=== PATIENT | male | born 1955 | race Caucasian/White ===

== ENCOUNTER 2017-05-13 17:25 | Emergency (ER) | payer OTHER ==
[~2017-05-13] VITALS: Ht 180.3 cm; Wt 81.5 kg
[~2017-05-13 17:25] MED LIST: ATOR20TA38 PO; METFORMIN PO
[2017-05-13 17:28] VITALS: Ht 180.3 cm; Wt 81.5 kg
[2017-05-13] MEDS ORDERED: ONDANSETRON 4 MG INJ IV STA (18:08)
[2017-05-13] MEDS ORDERED: morphine 4 MG/ML VIAL IV STA (18:08)
[2017-05-13] MEDS ORDERED: SOD CHLORIDE 0.9% 1,000 ML IV STA (18:08)
--- NOTE | 2017-05-13 19:05 | RADRPT ---
PROCEDURE: CT Abdomen and Pelvis without contrast. CLINICAL INDICATION: Abdominal pain TECHNIQUE: CT of the abdomen and pelvis was performed on a multi-detector scanner without IV contr ast. Coronal and sagittal images were reformatted from the axial data set. One or more of the foll owing dose reduction techniques were used: automated exposure control, adjustment of the mA and/or k V according to patient size, use of iterative reconstruction technique. CTDI = 10.16 mGy. DLP = 586 .56 mGy-cm. COMPARISON: None. FINDINGS: CT abdomen: The lung bases are clear. The heart size is normal, without pericardial effusion. Liver, gallbladd er, biliary tree, pancreas, spleen, adrenal glands and kidneys are unremarkable. No urolithiasis or obstructive uropathy is identified. The stomach is grossly unremarkable. The aorta is of normal caliber. Aortic vascular calcifications are present. There is no retroperit sanchez lymphadenopathy. The umer hepatis region is clear. CT pelvis: There is mild diffuse colonic wall thickening and pericolonic edema, compatible with mild diffuse co litis. No bowel obstruction, free intraperitoneal air or abscess is identified. The appendix is we ll visualized and normal. There is no diverticulosis or diverticulitis. Bowel containing right ing uinal hernia is noted. Urinary bladder is grossly unremarkable. No pelvic mass, free fluid or lymp hadenopathy is identified. The surrounding osseous structures are remarkable for degenerative enthesopathy of the spine. No os teolytic or osteoblastic lesion is detected. IMPRESSION: 1. Mild diffuse colitis, as above. 2. Bowel containing right inguinal hernia is noted, without obstruction or incarceration. 3. No mass or lymphadenopathy is identified. RPTAT: PP .Stephan Miller MD, Date Time Electronically viewed and signed by .Stephan Miller MD, on 05/13/2017 19:05 .R/
[2017-05-13] MEDS ORDERED: metroNIDAZOLE 500 MG TAB PO ONE (19:30)
[2017-05-13] MEDS ORDERED: CIPROFLOXACIN 400MG/D5W 200 ML IVPB ONE (19:30)
[2017-05-13 19:39] LABS: ADD UMIC NO; UR ASCORBIC ACID NEGATIVE (NEGATIVE); UR BILIRUBIN (Dip) NEGATIVE (NEGATIVE); UR BLOOD (Dip) NEGATIVE (NEGATIVE); UR CLARITY CLEAR (CLEAR); UR COLOR YELLOW (YELLOW); UR GLUCOSE (Dip) 3+ mg/dL (NEGATIVE); UR KETONES (Dip) NEGATIVE (NEGATIVE); UR LEUKOCYTE ESTERASE (Dip) NEGATIVE Leu/ul (NEGATIVE); UR NITRITE (Dip) NEGATIVE (NEGATIVE); UR SPECIFIC GRAVITY (Dip) 1.025 (1.003-1.030); UR TOTAL PROTEIN (Dip) NEGATIVE (NEGATIVE); UR UROBILINOGEN (Dip) NEGATIVE (NEGATIVE)
[2017-05-13 19:51] LABS: ADD SCAN DIFF NO
[2017-05-13 19:53] LABS: BASOPHILS % 0.3 % (0.0-2.0); HEMATOCRIT 39.3 % (42.0-52.0); HEMOGLOBIN 13.2 g/dl (14.0-18.0); LYMPHOCYTES # 0.9 10^3/ul (0.8-2.9); LYMPHOCYTES % 7.2 % (15.0-51.0); MEAN CORPUSCULAR HEMOGLOBIN 29.9 pg (29.0-33.0); MEAN CORPUSCULAR HGB CONC 33.6 g/dl (32.0-37.0); MEAN CORPUSCULAR VOLUME 88.9 fl (82.0-101.0); MEAN PLATELET VOLUME 10.9 fl (7.4-10.4); MONOCYTE # 0.6 10^3/ul (0.3-0.9); MONOCYTES % 4.9 % (0.0-11.0); NEUTROPHIL # 11.1 10^3/ul (1.6-7.5); NEUTROPHILS % 87.2 % (39.0-77.0); PLATELET COUNT 252 10^3/UL (140-415); RED BLOOD COUNT 4.42 10^6/ul (4.70-6.10); RED CELL DISTRIBUTION WIDTH 12.1 % (11.5-14.5); WHITE BLOOD COUNT 12.7 10^3/ul (4.8-10.8)
[2017-05-13 20:26] LABS: ALBUMIN 4.8 g/dl (3.3-4.9); ALBUMIN/GLOBULIN RATIO 1.77; BILIRUBIN,INDIRECT 0.9 mg/dl (0-1.1); BILIRUBIN,TOTAL 0.9 mg/dl (0.2-1.3); CALCIUM 9.7 mg/dl (8.4-10.2); CREATININE 0.71 mg/dl (0.61-1.24); POTASSIUM 3.4 mmol/L (3.5-5.1); TOTAL PROTEIN 7.5 g/dl (6.1-8.1)
[2017-05-13] MEDS ORDERED: POTASSIUM CHLORIDE (SR) 20 MEQ TAB PO STA (20:53)
[2017-05-13] MEDS ORDERED: BISM262O23 PO (20:57)
[2017-05-13] MEDS ORDERED: CIPR500T4 PO (20:57)
[2017-05-13] MEDS ORDERED: TRAM-40 PO (20:57)
[2017-05-13] MEDS ORDERED: METR500T PO (20:57)
[2017-05-13 21:00] VITALS: BP 145/68; PULSE 83; RESP 16; TEMP 99
--- NOTE | 2017-05-13 21:03 | ERD ---
ER Documentation Chief Complaint Date/Time DATE: 05/13/17 TIME: 20:59 Chief Complaint Complains of abdomina pain and diarrhea x 3 days HPI This 62-year-old male complains of some lower abdominal pain and diarrhea for last 3 days. He is no history of fevers. Pain was intermittent but has been more constant today. There is no blood or mucus in the diarrhea. Denies any foreign travel or suspect food. patient has a history of diabetes non-insulin- dependent. ROS All systems reviewed and are negative except as per history of present illness. Medications Home Meds Active Scripts Bismuth Subsalicylate* (Pepto-Bismol*) 262 Mg/15 Ml Oral.susp, 15 ML PO Q3H for 4 Days, ML Prov:DEB CHU MD 05/13/17 Tramadol Hcl* (Ultram*) 50 Mg Tablet, 50 MG PO Q6H Y for PAIN, #14 TAB Prov:DEB CHU MD 05/13/17 Metronidazole* (Flagyl*) 500 Mg Tablet, 500 MG PO BID for 7 Days, TAB Prov:DEB CHU MD 05/13/17 Ciprofloxacin Hcl* (Ciprofloxacin Hcl*) 500 Mg Tablet, 500 MG PO BID for 7 Days , #14 TAB Prov:DEB CHU MD 05/13/17 Reported Medications Atorvastatin Calcium* (Atorvastatin Calcium*) 20 Mg Tablet, 20 MG PO HS, TAB 07/25/15 [Metformin] No Conflict Check, 500 MG PO BID 07/25/15 Allergies Allergies: Coded Allergies: No Known Allergy (Unverified , 07/25/15) PMhx/Soc History of Surgery: Yes (LEFT INGUINAL HERNIA) Anesthesia Reaction: No Hx Neurological Disorder: No Hx Respiratory Disorders: No Hx Cardiac Disorders: No Hx Psychiatric Problems: No Hx Miscellaneous Medical Probl: Yes (HLD, DM) Hx Alcohol Use: No Hx Substance Use: No Hx Tobacco Use: No Smoking Status: Never smoker Physical Exam Vitals Vital Signs Date Time Temp Pulse Resp B/P Pulse Ox O2 Delivery O2 Flow Rate FiO2 05/13/17 17:28 98.9 68 20 158/72 98 Physical Exam Const: [], [id number]. Head: Atraumatic Eyes: Normal Conjunctiva ENT: Normal External Ears, Nose and Mouth. Neck: Full range of motion..~ No meningismus. Resp: Clear to auscultation bilaterally Cardio: Regular rate and rhythm, no murmurs Abd: Soft, mild tenderness in the lower abdomen. No tenderness at McBurney' s point no Mireles sign. non distended. Normal bowel sounds Skin: No petechiae or rashes Back: No midline or flank tenderness Ext: No cyanosis, or edema Neur: Awake and alert Psych: Normal Mood and Affect Result Diagram: 05/13/17192805/13/171928 Results 24 hrs Laboratory Tests Test 05/13/17 19:22 05/13/17 19:29 Urine Color YELLOW Urine Clarity CLEAR Urine pH 7.0 Urine Specific Dalton 1.025 Urine Ketones NEGATIVEmg/dL Urine Nitrite NEGATIVEmg/dL Urine Bilirubin NEGATIVEmg/dL Urine Urobilinogen NEGATIVEmg/dL Urine Leukocyte Esterase NEGATIVELeu/ul Urine Hemoglobin NEGATIVEmg/dL Urine Glucose 3+mg/dL Urine Total Protein NEGATIVEmg/dl White Blood Count 12.710^3/ul Red Blood Count 4.4210^6/ul Hemoglobin 13.2g/dl Hematocrit 39.3% Mean Corpuscular Volume 88.9fl Mean Corpuscular Hemoglobin 29.9pg Mean Corpuscular Hemoglobin Concent 33.6g/dl Red Cell Distribution Width 12.1% Platelet Count 77790^3/UL Mean Platelet Volume 10.9fl Neutrophils % 87.2% Lymphocytes % 7.2% Monocytes % 4.9% Eosinophils % 0.0% Basophils % 0.3% Nucleated Red Blood Cells % 0.0/100WBC Neutrophils # 11.110^3/ul Lymphocytes # 0.910^3/ul Monocytes # 0.610^3/ul Eosinophils # 0.010^3/ul Basophils # 0.010^3/ul Nucleated Red Blood Cells # 0.010^3/ul Sodium Level 134mmol/L Potassium Level 3.4mmol/L Chloride Level 96mmol/L Carbon Dioxide Level 28mmol/L Anion Gap 13 Blood Urea Nitrogen 16mg/dl Creatinine 0.71mg/dl Glucose Level 216mg/dl Calcium Level 9.7mg/dl Total Bilirubin 0.9mg/dl Direct Bilirubin 0.00mg/dl Indirect Bilirubin 0.9mg/dl Aspartate Amino Transf (AST/SGOT) 27IU/L Alanine Aminotransferase (ALT/SGPT) 48IU/L Alkaline Phosphatase 76IU/L Total Protein 7.5g/dl Albumin 4.8g/dl Globulin 2.70g/dl Albumin/Globulin Ratio 1.77 Lipase 67U/L Current Medications Medications (Trade) Dose Ordered Sig/Harley Route PRN Reason Start Time Stop Time Status Last Admin Dose Admin Sodium Chloride (NS) 1,000 ml @ 1,000 mls/hr Q1H STAT IV 05/13/17 18:08 05/13/17 19:07 DC 05/13/17 19:57 Morphine Sulfate (morphine) 4 mg ONCE STAT IV 05/13/17 18:08 05/13/17 18:10 DC 05/13/17 19:57 Ondansetron HCl 4 mg 4 mg ONCE STAT IV 05/13/17 18:08 05/13/17 18:10 DC 05/13/17 19:57 Ciprofloxacin/ Dextrose (Cipro Ivpb) 200 ml @ 200 mls/hr ONCE ONCE IVPB 05/13/17 19:30 05/13/17 20:29 DC 05/13/17 20:02 Metronidazole (Flagyl) 500 mg ONCE ONCE PO 05/13/17 19:30 05/13/17 19:31 DC 05/13/17 20:42 Potassium Chloride (Klor-Con 20) 40 meq ONCE STAT PO 05/13/17 20:53 05/13/17 21:00 DC Procedures/MDM Given the patient's comorbidities and worsening abdominal pain and IV was obtained. CBC shows white blood count 12. CMP shows potassium 3.4, sodium 134 and chloride 96 consistent with mild dehydration.. CT abdomen pelvis shows bowel wall thickening consistent with colitis without evidence of abscess, appendicitis, additional acute abnormalities. Patient was given Cipro 400 mg IV , Flagyl 500 mg of mouth, Toradol 30 mg IV and 1 L normal saline IV. Patient shows no signs of sepsis, diabetic ketoacidosis, abscess, aortic disease, appendicitis. Patient feels better and is amenable to outpatient treatment currently but is advised to recheck for new or worsening symptoms with primary care doctor this week. Patient will be treated with Cipro and Flagyl, Pepto- Bismol and Tylenol as an outpatient. Patient was given K-Dur 40 mEq for mild hypokalemia. Departure Diagnosis: Primary Impression: Diarrhea Diarrhea type: presumed infectious Qualified Code: A09 - Diarrhea of presumed infectious origin Additional Impression: Abdominal pain Abdominal location: lower abdomen, unspecified Qualified Code: R10.30 - Lower abdominal pain Condition: Stable Patient Instructions: Abdominal Pain, Treating Diarrhea Additional Instructions: hay simptomas de infection en estudios. Cheque otro vez con nance doctor primario en el proximo trejo or regresa para mas o nueva simptomas. DEB CHU MD May 13, 2017 21:03
== END 2017-05-13 23:25 | disposition home or self-care (01) ==
LOC: FTE 17:25
DX: A09 Infectious gastroenteritis and colitis, unspecified (principal); E11.9 Type 2 diabetes mellitus without complications; Z79.84 Long term (current) use of oral hypoglycemic drugs
CPT/HCPCS: 74176; 80053; 81003; 83690; 85025; J0744; J2270; J2405; J7030; Z7610; 36415; 96374; 96375